=== PATIENT | male | born 1980 | race Caucasian/White ===

== ENCOUNTER 2023-10-27 04:06 | Day surgery (SDC) | payer OTHER ==
[~2023-10-27] VITALS: Ht 175.3 cm; Wt 68.9 kg
[2023-10-27] VITALS (188 sets, daily range): BP systolic 80–142; BP diastolic 51–101
[2023-10-27] MEDS ORDERED: FAMOTIDINE 20 MG/TAB PO PRN (07:30)
[2023-10-27] MEDS ORDERED: PANTOPRAZOLE SODIUM Sesquihydr 40 MG/TAB PO PRN (07:30)
[2023-10-27] MEDS ORDERED: diazePAM 5 MG/TAB PO PRN ×2 (07:30→08:30)
[2023-10-27] MEDS ORDERED: CYANOCOBALAMIN 500 MCG/TAB ( B12) PO PRN (07:30)
[2023-10-27] MEDS ORDERED: SCOPOLAMINE 1.5 MG DIS TD PRN (07:30)
[2023-10-27] MEDS ORDERED: LACTATED RINGER'S 1,000 ML IV PRN ×3 (07:30→19:00)
[2023-10-27] MEDS ORDERED: ALBUTEROL SULFATE 2.5 MG VIAL IN PRN (07:30)
[2023-10-27] MEDS ORDERED: cloNIDine HCL 0.1 MG/TAB PO PRN (07:30)
[2023-10-27] MEDS ORDERED: ASCORBIC ACID 4,000 MG in SODIUM CHLORIDE 0.9% 1,000 ML IV SCH (08:00)
[2023-10-27 08:37] LABS: EOS% 3.5 % (0-8); HEMATOCRIT 40.1 % (39.0-50.0); HEMOGLOBIN 13.6 g/dl (14.0-18.0); LYMPH% 31.4 % (15-41); MEAN CELL VOLUME 84.8 fL CALC (80.0-100.0); MEAN CORPUSCULAR HGB 28.8 pG CALC (26.0-32.0); MEAN CORPUSCULAR HGB CONC 33.9 g/dL CAL (32.0-36.0); MONO% 9.6 % (2-13); NEUT# 3.72 thou/uL (1.82-7.42); NEUT% 54.5 % (42-76); RED BLOOD COUNT 4.73 mill/uL (4.70-6.10); RED CELL DISTRI WIDTH 12.3 % (11.5-15.5)
[2023-10-27 08:47] LABS: ALBUMIN 4.6 g/dL (3.2-5.0); BILIRUBIN, TOTAL 0.9 mg/dL (0.2-1.3); CREATININE 1.2 mg/dL (0.7-1.3); POTASSIUM 3.7 mmol/l (3.5-5.1); TOTAL PROTEIN 7.8 g/dL (6.3-8.2)
[2023-10-27] MEDS ORDERED: DiphenhydrAMINE HCL 50 MG/ML SDV IV PRN (09:10)
[2023-10-27] MEDS ORDERED: ROCURONIUM BROMIDE 10 MG/ML 5ML VIAL IV PRN (09:10)
[2023-10-27] MEDS ORDERED: OCTREOTIDE ACETATE 100 MCG/VIAL SDV SC PRN (09:10)
[2023-10-27] MEDS ORDERED: ONDANSETRON HCl 4 MG/2 ML SDV IV PRN ×3 (09:10→19:00)
[2023-10-27] MEDS ORDERED: LIDOCAINE HCL 1% (10MG/ML) 100 MG/10 ML MDV IV PRN (09:10)
[2023-10-27] MEDS ORDERED: NALTREXONE HCL 50 MG/TAB VT PRN (09:10)
[2023-10-27] MEDS ORDERED: DEXAMETHASONE SODIUM PHOSPHATE PF 10 MG/ML SDV IV PRN ×2 (09:10→19:00)
[2023-10-27] MEDS ORDERED: MIDAZOLAM HCL 2 MG/2 ML VIAL IV PRN (09:10)
[2023-10-27] MEDS ORDERED: cloNIDine HYDROCHLORIDE 100 MCG/ML 10 ML INJ IV PRN (09:10)
[2023-10-27] MEDS ORDERED: diazePAM 5 MG/TAB VT PRN (09:10)
[2023-10-27] MEDS ORDERED: POTASSIUM CHLORIDE 10 MEQ/50 ML BAG IV PRN (09:10)
[2023-10-27] MEDS ORDERED: THIAMINE HCL 100 MG/ML 2ML VIAL IV PRN (09:10)
[2023-10-27] MEDS ORDERED: LIDOCAINE HCL 1% (10MG/ML) 100 MG/10 ML MDV VT PRN ×2 (09:10)
[2023-10-27] MEDS ORDERED: MAGNESIUM SULFATE HEPTAHYDRATE 100 ML IV PRN (09:10)
[2023-10-27] MEDS ORDERED: STERILE WATER FOR IRRIGATION 1,000 ML BTL IR PRN (09:10)
[2023-10-27] MEDS ORDERED: cloNIDine HCL 0.1 MG/TAB VT PRN (09:10)
[2023-10-27] MEDS ORDERED: SUCCINYLCHOLINE CHLORIDE 20 MG/ML 10ML VIAL IV PRN (09:10)
[2023-10-27] MEDS ORDERED: PROPOFOL 10 MG/ML 100ML VIAL IV PRN (09:10)
[2023-10-27] MEDS ORDERED: PROPOFOL 100 ML IV PRN (09:10)
[2023-10-27] MEDS ORDERED: VENTOLIN HFA108 MCG IN (09:12)
[2023-10-27] MEDS ORDERED: EXCEDRIN PO (09:13)
[2023-10-27] MEDS ORDERED: clonazePAM 1 MG/TAB PO PRN (15:00)
[2023-10-27] MEDS ORDERED: NALTREXONE50 MG PO (17:45)
[2023-10-27] MEDS ORDERED: CLONIDINE0.1 MG PO (17:45)
[2023-10-27] MEDS ORDERED: KLONOPIN2 MG PO (17:45)
[2023-10-27] MEDS ORDERED: ACETAMINOPHEN 1,000 MG/100 ML VIAL IV PRN (19:00)
[2023-10-27] MEDS ORDERED: ACETAMINOPHEN 500 MG TAB PO PRN (19:00)
[2023-10-27] MEDS ORDERED: HALOPERIDOL LACTATE 5 MG/ML SDV IV PRN (19:00)
[2023-10-27] MEDS ORDERED: LORazepam 2 MG/ML IV PRN ×2 (19:00)
[2023-10-27] MEDS ORDERED: KETOROLAC TROMETHAMINE 30 MG/ML SDV IV PRN (19:00)
[2023-10-27] MEDS ORDERED: PROMETHAZINE HCL 25 MG in SODIUM CHLORIDE 0.9% 50 ML IV PRN (19:00)
[2023-10-27] MEDS ORDERED: PROMETHAZINE HCL 12.5 MG in SODIUM CHLORIDE 0.9% 50 ML IV PRN (19:00)
[2023-10-27] MEDS ORDERED: PATIENT' OWN MED CONTROLLED 1 EA DOSE IV PRN (21:00)
[2023-10-27] MEDS ORDERED: cloNIDine HCL 0.1 MG/TAB PO SCH (23:00)
[2023-10-28] MEDS ORDERED: cloNIDine HCL 0.1 MG/TAB PO PRN (04:00)
[2023-10-28] MEDS ORDERED: clonazePAM 1 MG/TAB PO PRN ×3 (04:00→18:35)
[2023-10-28 04:44] VITALS: BP 110/70
[2023-10-28 04:44] LABS: BASO% 0.1 % (0-3); HEMATOCRIT 41.1 % (39.0-50.0); IMMATURE GRANULOCYTES 0.2 % (0.0-5.0); LYMPH% 9.4 % (15-41); MEAN CELL VOLUME 84.2 fL CALC (80.0-100.0); MEAN CORPUSCULAR HGB 28.7 pG CALC (26.0-32.0); MEAN CORPUSCULAR HGB CONC 34.1 g/dL CAL (32.0-36.0); NEUT# 8.66 thou/uL (1.82-7.42); NEUT% 88.3 % (42-76); RED BLOOD COUNT 4.88 mill/uL (4.70-6.10); RED CELL DISTRI WIDTH 12.3 % (11.5-15.5)
[2023-10-28 05:03] LABS: ALBUMIN 4.3 g/dL (3.2-5.0); CREATININE 1.1 mg/dL (0.7-1.3); MAGNESIUM 2.6 mg/dL (1.6-2.3); POTASSIUM 3.9 mmol/l (3.5-5.1); TOTAL PROTEIN 7.6 g/dL (6.3-8.2)
[2023-10-28] MEDS ORDERED: cloNIDine HCL 0.1 MG/TAB PO SCH ×2 (08:00→21:00)
[2023-10-28] MEDS ORDERED: ACETAMINOPHEN 325 MG/TAB PO SCH (08:00)
[2023-10-28] MEDS ORDERED: PANTOPRAZOLE SODIUM Sesquihydr 40 MG/TAB PO SCH (08:00)
[2023-10-28] MEDS ORDERED: NALTREXONE HCL 50 MG/TAB PO SCH (08:00)
[2023-10-28] MEDS ORDERED: MAGNESIUM OXIDE 400 MG/TAB PO PRN ×2 (09:00→18:05)
[2023-10-28] MEDS ORDERED: ACETAMINOPHEN 500 MG TAB PO PRN ×2 (09:00→18:05)
[2023-10-28] MEDS ORDERED: Cholecalciferol 2,000 UNIT/TAB PO PRN ×2 (09:00→18:05)
[2023-10-28] MEDS ORDERED: POTASSIUM CHLORIDE 20 MEQ/TAB PO ONE (10:15)
[2023-10-28] MEDS ORDERED: NALTREXONE HCL 50 MG/TAB PO ONE ×2 (10:45→11:30)
[2023-10-28 22:59] VITALS: BP 130/70
[2023-10-29 04:23] VITALS: BP 110/56
[2023-10-29 04:56] LABS: MEAN CELL VOLUME 84.9 fL CALC (80.0-100.0); MEAN CORPUSCULAR HGB 28.7 pG CALC (26.0-32.0); MEAN CORPUSCULAR HGB CONC 33.8 g/dL CAL (32.0-36.0); RED BLOOD COUNT 4.11 mill/uL (4.70-6.10); RED CELL DISTRI WIDTH 12.7 % (11.5-15.5)
[2023-10-29 05:02] LABS: HEMATOCRIT 34.9 % (39.0-50.0); HEMOGLOBIN 11.8 g/dl (14.0-18.0)
[2023-10-29 05:08] LABS: ALBUMIN 3.5 g/dL (3.2-5.0); MAGNESIUM 2.2 mg/dL (1.6-2.3); TOTAL PROTEIN 6.2 g/dL (6.3-8.2)
[2023-10-29 05:24] LABS: POTASSIUM 3.1 mmol/l (3.5-5.1)
[2023-10-29] MEDS ORDERED: NALTREXONE HCL 50 MG/TAB PO SCH (07:30)
[2023-10-29] MEDS ORDERED: POTASSIUM CHLORIDE 20 MEQ/TAB PO SCH (08:30)
[2023-10-29] MEDS ORDERED: PANTOPRAZOLE SODIUM Sesquihydr 40 MG/TAB PO SCH (09:00)
== END 2023-10-29 09:40 | disposition home or self-care (01) | DRG 897 ==
LOC: MS2 04:06 → ANR 04:06
PROVIDERS: ATTEND Anesthesiology
DX: F11.20 Opioid dependence, uncomplicated (principal)
CPT/HCPCS: J0131; J1100; J2060; J2354; J3475; J3490